=== PATIENT | male | born 1980 | race African-American/Black ===

== ENCOUNTER 2022-10-21 16:33 | Emergency (ER) | payer OTHER ==
[2022-10-21 16:40] VITALS: BP 177/96; PULSE 72; RESP 18; TEMP 98; BMI 28.5
[2022-10-21 17:27] LABS: HEMATOCRIT 42.1 % (35.4-49); HEMOGLOBIN 14.3 G/dL (11.7-16.9); MCH 35.4 pg (25.7-33.7); MEAN CELL VOLUME 104.2 fl (80-96); MEAN PLT VOLUME 8.4 fl (7.5-11.1); PLATELET COUNT 282.4 10^3/uL (134-434); RBC 4.04 10^6/uL (4.00-5.60); RDW 13.1 % (11.9-15.9)
[2022-10-21 17:34] LABS: ALBUMIN 4.3 g/dl (3.4-5.0); BILIRUBIN,TOTAL 0.9 mg/dl (0.2-1); CALCIUM 9.4 mg/dl (8.5-10); CREATININE 1.1 mg/dl (0.55-1.3); TOT PROT 7.1 g/dl (6.4-8.2)
== END 2022-10-21 18:03 | disposition home or self-care (01) ==
LOC: FER 16:33
DX: R03.0 Elevated blood-pressure reading, without diagnosis of hypertension (principal)
CPT/HCPCS: 36415; 80053; 84484; 85027; 93005; 99281-25